=== PATIENT | female | born 2000 | race Caucasian/White ===

== ENCOUNTER 2025-02-04 10:11 | Emergency (ER) | payer OTHER, SELFPAY ==
--- OUTSIDE RECORDS SUMMARY | 2025-02-04 10:20 | XMS_ITS | Encounter Summary ---
Author Organization [facility] Address [address] [place] [address] Phone Care Team Providers Care See Supervisor Name Role Phone Teodoro Boyle MD Unavailable Robinson Horvath MD Primary Care Provider [phone] Reason for Visit * Reason Comments Medication Refill Encounter Details Date Type Department Care Team (Late st Contact Info) Description 07/08/2020 Refill [facility] [address] [place] [id number] Yunier Mendez APRN, FLY RAISER LOCKSTITCH [address] [address] Medication Refill Social History Tobacco Use Types Packs/Day Years Used Date Smoking Tobacco: Never Smokeless Tobacco: Never Comments:smoked only for 6 m onths, 3-4 a week Alcohol Use Standard Drinks/Week Comments Yes 0 (1 standard drink = 0.6 oz pur e alcohol) PHQ-2 Answer Date Recorded PHQ-2 Score 15 10/03/2019 Education Answer Date Recorded What is the highest level of school you have completed or the highest degree you have received? 12th grade 06/27/2020 Sexually Active Control Partners Comments Yes Male Comments No Sex and Gender Information Value Date Recorded Sex Assigned at Not on file Legal Sex Female 7:24 PM CDT Gender Identity Not on file Sexual Orientation Not on file Occupation Industry Job Start Date Job End Date [employer] Not on file Not on file Not on file COVID-19 Exposure Response Date Recorded In the last month, have you been in contact with someone who was confirmed or suspected to have Coronavirus / COVID-19? No / Unsure 07/09/2020 9:15 AM CDT documented as of this encounter Miscellaneous Notes * Telephone Encounter - Yunier Mendez APN, CNP - 07/10/2020 10:00 AM CDT PDMP reviewed. * Telephone Encounter - Pamella Smith RN - 07/09/2020 3:22 PM CDT Medication failed the protocol, provider to review and approve the medication order. Requested Prescriptions Pending Prescriptions Disp Refills LORazepam (ATIVAN) 0.5 MG Tablet [Pharmacy Med Name: LORAZEPAM 0.5MG TABLETS] 30 Tab 0 Sig: TAKE 1 TABLET BY MOUTH TWICE DAILY NEEDED FOR ANXIETY Not Delegated - Anesthesia: Anesthetics & Sedatives Failed - 07/09/2020 3:21 PM Failed - This refill cannot be delegated Passed - Valid encounter within last 6 months Past Office Visits Recent Outpatient Visits Yesterday Injection site reaction, subsequent encounter [facility] - Betty Pepe APN, CNP 1 week ago Injection site reaction, initial encounter [facility] - Yunier Vilchis APN, CNP 1 week ago Generalized abdominal pain [facility] - Yunier Vilchis APN, CNP 2 months ago [facility] Yunier Vilchis [facility]N, CNP 3 months ago Viral URI [facility] - Yunier Vilchis APN, CNP Upcoming Appointments Future Appointments Today [email or web address]; [facility] Ultrasound, [facility] In 1 week Keshawn Nicholas MD [facility], [facility] In 2 months Yunier Mendez APN, FLY RAISER LOCKSTITCH [facility] - Family Medicine [facility] In 5 months Keshawn Nicholas MD [facility] Oncology Services, [facility] REGIONAL GUIDE - Recent and Past Visits Recent Visits Date Type Provider Dept 07/08/20 Office Visit Betty Vaca APN, FLY RAISER LOCKSTITCH [facility] 07/02/20 Office Visit Yunier Mendez APN, ALBERTO [facility] 06/28/20 Office Visit Yunier Mendez APN, FLY RAISER LOCKSTITCH [facility] 05/07/20 Office Visit Yunier Mendez APN, FLY RAISER LOCKSTITCH [facility] 04/04/20 Office Visit Yunier Mendez APN, ALBERTO [facility] 04/01/20 Office Visit Yunier Mendez APN, FLY RAISER LOCKSTITCH [facility] 10/24/19 Office Visit [facility] 10/03/19 Office Visit Yunier Mendez APN, FLY RAISER LOCKSTITCH [facility] 09/11/19 Office Visit Yunier Mendez APN, FLY RAISER LOCKSTITCH [facility] 08/08/19 Office Visit Yunier Mendez APN, FLY RAISER LOCKSTITCH [facility] Showing recent visits within past 460 days with a meds authorizing provider and meeting all other requirements Future Appointments Date Type Provider Dept 10/01/20 Appointment Yunier Mendez APN, FLY RAISER LOCKSTITCH [facility] Showing future appointments within next 90 days with a meds authorizing provider and meeting all other requirements 2 months ago (05/07/2020) LORazepam (ATIVAN) 0.5 MG Tablet Take 1 Tab by mouth 2 times daily as needed for Anxiety. Dispense: 30 Tab? Refills: 0? Start: 05/07/2020? documented in this encounter Plan of Treatment Not on file documented as of this encounter Visit Diagnoses Diagnosis Chest pain in adult documented in this encounter Additional Health Concerns Infection Onset Date Last Indicated Resolved Time COVID - 19 10/15/2020 10/15/2020 10/19/2020 6:55 AM SMOKE AND FLAME SPECIALIST COVID - 19 05/06/2021 05/06/2021 05/07/2021 7:56 PM CDT COVID - 19 Confirmed 05/06/2021 05/06/2021 021 12:16 AM CDT COVID - 19 09/14/2022 09/17/2022 09/27/2022 12:1 7 AM SMOKE AND FLAME SPECIALIST Respiratory Rule-Out 09/14/2022 09/14/2022 023 4:15 PM SMOKE AND FLAME SPECIALIST COVID - 19 11/21/2022 11/21/2022 12/01/2022 12:1 6 AM CDT COVID - 19 Confirmed 11/21/2022 11/21/2022 023 12:16 AM CDT COVID - 19 09/13/2023 09/13/2023 09/23/2023 12:1 6 AM SMOKE AND FLAME SPECIALIST Assessment Noted Time PHQ-9 Depression Total Score: 15 020 4:00 PM SMOKE AND FLAME SPECIALIST documented as of this encounter Care Teams See Supervisor Relationship Specialty Start Date End Date Robinson Horvath MD #[address] [address] PCP - General Family Medicine 07/26/19 Teodoro Boyle MD Consulting Physician Obstetrics & Gynecology 04/05/19 documented as of this encounter
--- OUTSIDE RECORDS SUMMARY | 2025-02-04 10:20 | XMS_ITS | Continuity of Care Document ---
Author Organization [facility] Address [address] [place] [address] [place] [address] Phone Care Team Providers Care Spindle Frame Carver Name Role Phone Ricardo Brice OD Unavailable Unavailable Allergies, Adverse Reactions, Alerts Substance Reaction Status Criticality DYE Active No Information Medications Medication Instructions Dosage Effective Dates (start - stop) Status Comments 1.5/30 (28) 1.5 mg-30 mcg (21)/75 mg (7) tablet take 1 tablet by oral route every day 1.00 tablet - Active Procedures Procedure Date Visual Field Examination(s) SCODI, Posterior Segment Office/outpatient Visit, Est Eye Exam, New Patient Advance Directives Directive Yes / No Effective Date File Name No Information Encounters Encounter Description Practice Location Reason(s) For Visit Diagnoses Date Provider Providers Copied on Encounter Office/outpa tient Visit, Est [facility], [address] [place] [address] [address], [place], [place], [id number], tel:[phone] SEC Jasen OROURKE Professional 1 mo IOP check (chief complaint) Glaucoma suspect of both eyesMeibomian gland dysfnct right eye, upper and lower eyelidsMeibomia n gland dysfnct left eye, upper and lower eyelids 9 Babs Silva. [facility], [address] [place] [address], [place], [address], [place]. tel:[phone] Referring Provider: Ricardo Burnette, [address] [place] [address], [place], [address]. tel:[phone] [facility], [address], [place], [place], [id number], tel:[phone] HUAN OROURKE Professional WIE (chief complaint) Family history of glaucomaMyopia of both eyes 9 Babs CEE Ricardo. [address] [place] [address], [address] [place] [address], [place], [address], [place]. tel:[phone] Referring Provider: Ricardo Brice OD R, [address] [place] [address], [place], [address]. tel:[phone] Family History Family Member Type Diagnosis Age At Onset Problem (finding) Family history of glauc prince Payers Payer name Insurance type Covered green party ID Authorlennie doshi(s) Humanmalcolm [facility] [id number] Social History Type Description Quantity Date Captured Comments Alcohol Use Details No Caffeine Use Details Tobacco Use Status Current non-smoker 18 Smoking Status Never smoker Non-Smoking Tobacco Use Details : No Details Available : No Details Available Sex Female Chief Complaint And Reason For Visit From encounter dated '05/24/2019 08:00'. 1 mo IOP check (chief complaint). Description: The 19 year old female presents for evaluation of 1 mo IOP check with VF 24-2 in the right eye and left eye. Hx of Myopia OU and Cupping OU. FHx of Glaucoma. Pt reports she doesn't use any gtts, OU. Pt reports she has noticed VA changes, OU, x 1 mo, and she is scared to drive at night because of her VA. Pt reports she still has the moderate ache like pain in the am, OU, x 3-4 mos, and OU feels bruised if she rubs them. Pt reports she has gooey like fluid come out of OU at night after she gets out of the shower, x 3-4 mo. Reason For Referral Reason For Referral No Information History Of Present Illness Encounter Date Complaint History Of Prese nt Illness 1 mo IOP check The 19 year old female presents for evaluation of 1 mo IOP check with VF 24-2 in the right eye and left eye. Hx of Myopia OU and Cupping OU. FHx of Glaucoma. Pt reports she doesn't use any gtts, OU. Pt reports she has noticed VA changes, OU, x 1 mo, and she is scared to drive at night because of her VA. Pt reports she still has the moderate ache like pain in the am, OU, x 3-4 mos, and OU feels bruised if she rubs them. Pt reports she has gooey like fluid come out of OU at night after she gets out of the shower, x 3-4 mo. WIE The 18 year old female presents for evaluation of WIE in the right eye and left eye. Patient states over the weekend her eyes were sore, swollen and sore to the touch. Patient states her vision seems more blurry. Patient states she was told that she has high blood pressure in her eyes. Functional Status Date Functional Assessmen t No Information Instructions Date Instruction Additional Infor avelino Impression/Plan Impression/Plan Assessments Type Assessment Date assessment Glaucoma suspect of both eyes Se assessment Meibomian gland dysfnct right ey e, upper and lower eyelids assessment Meibomian gland dysfnct left eye , upper and lower eyelids Patient Care Teams Name Effective Dates (start - stop) Status Members No Information
--- OUTSIDE RECORDS SUMMARY | 2025-02-04 10:20 | XMS_ITS | Clinical Summary ---
Author Organization [facility] Address [address] [place] [address] Phone Care Team Providers Care Senior Staff Accountant Name Role Phone Teodoro Boyle MD Unavailable Robinson Horvath MD Primary Care Provider [phone] Allergies Active Allergy Reactions Criticality Noted Date Comments Codeine Hives,Itching 09/11/2019 Iodinated Contrast Media Hives,Itching High 11/10/19 16 Medications albuterol (ProAir HFA) 108 (90 Base) MCG/ACT Aerosol SolutionIndicat ions:COVID-19,D yspnea on exertion take 2 Puffs by inhalation every 4 hours as needed for Wheezing or Cough. 18 g 3 Active Additional Information Patient not taking.Reported on 10/31/2023 fluticasone (FLONASE) 50 MCG/ACT Suspension SPRAY 2 SPRAYS INTO EACH NOSTRIL DAILY -AFTER 1 WEEK MAY USE 1-2 SPRAY INTO EACH NOSTRIL DAILY 4 Active Active Problems Problem Noted Date Diagnosed Date Skin lesion of left arm 11/12/2020 Chest wall pain 10/27/2020 Epigastric pain 07/07/2020 Dysuria 07/07/2020 Thrombocytosis 05/27/2020 S/P laparoscopic cholecystectomy 11/22/2019 Biliary dyskinesia 11/07/2019 DDD (degenerative disc disease), lumbar 09/15/19 Vitamin D deficiency 07/30/2019 B12 deficiency 07/30/2019 Fatigue 07/26/2019 Tachycardia 07/26/2019 Irritable bowel syndrome 07/26/2019 Mild intermittent asthma without complication Gastroesophageal reflux disease 07/26/2019 Anxiety 07/26/2019 Kidney stone 07/26/2019 Anal skin tag 06/23/2019 Midline low back pain 05/30/2019 Acne vulgaris 06/01/2016 Resolved Problems Problem Noted Date Diagnosed Date Resolved Date Thrombocytosis 05/08/2020 10/04/2020 Nausea vomiting and diarrhea 11/07/2019 06/01/2020 Biliary dyskinesia 11/07/2019 0 Nausea vomiting and diarrhea 11/07/2019 06/01/2020 Overweight (BMI 25.0-29.9) 07/26/2019 1 Anal fissure 12/13/2018 04/05/2019 Plantar wart of both feet 07/24/2015 Immunizations Immunization Administration Dates Next Due DTAP VACCINE 01/08/2005, 0,1999,09/18,1999 HEP B/HIB Combined Vaccine 08/30/2000,1999 ,1999 Hepatitis A Vaccine, Pediatric/adolescent, 2 Dose Schedule 07/19/2014 Hpv, Unspecified Formulation 07/19/2014,04/24/20 14 Inactivated Polio Vaccine 01/08/2005,,1999,07/24 Influenza Vaccine, Quadrivalent, PF 06/13/2020,0 05/30/2019 MMR Vaccine 01/08/2005,05/27/2000 Meningococcal MCV4O 03/31/2011 Pneumococcal Vaccine Peds - 7 Valent 08/30/2000, 05/27/2000 TDAP Vaccine 03/31/2011 Varicella Vaccine Live 03/31/2011,05/27/2000 Family History Medical History Relation Name Comments No Known Problems Brother Congestive Heart Failure Father Heart Disease Father Hypertension Father Melanoma Mother Kidney Cancer Paternal Grandfather Lung Cancer Paternal Grandfather Leukemia/Lymphoma Paternal Grandmother Relation Name Status Comments Brother Alive Father Alive Maternal Grandfather Maternal Grandmother Alive Mother Alive Paternal Grandfather Paternal Grandmother Alive Social History Tobacco Use Types Packs/Day Years Used Date Smoking Tobacco: Former Cigarettes Smokeless Tobacco: Never Tobacco Cessation:Counseling Given: No Comments:Smoked cigarettes for only 6 months, 3-4 cigarettes a week Alcohol Use Standard Drinks/Week Comments Yes 0 (1 standard drink = 0.6 oz pur e alcohol) Occasionally PHQ-2 Answer Date Recorded Total Score - Questions 1-9 0 09/14 Education Answer Date Recorded What is the highest level of school you have completed or the highest degree you have received? Some college, no degree 10/04/2020 Sexually Active Control Partners Comments Yes Male Comments No Sex and Gender Information Value Date Recorded Sex Assigned at Not on file Legal Sex Female 7:24 PM CDT Gender Identity Not on file Sexual Orientation Not on file Occupation Industry Job Start Date Job End Date [employer] Not on file Not on file Not on file Last Filed Vital Signs Vital Sign Reading Time Taken Comments Blood Pressure 140/65 10/31/2023 8:29 PM EXCHANGE ADMINISTRATOR Pulse 98 10/31/2023 8:29 PM EXCHANGE ADMINISTRATOR Temperature 36 C (96.8 F) 10/31/2023 8:29 PM EXCHANGE ADMINISTRATOR Respiratory Rate 17 10/31/2023 8:29 PM EXCHANGE ADMINISTRATOR Oxygen Saturation 98% 10/31/2023 8:29 PM EXCHANGE ADMINISTRATOR Inhaled Oxygen Concentration - - Weight 83 kg (183 lb) 10/31/2023 8:29 PM EXCHANGE ADMINISTRATOR Height 165.1 cm (5' 5 ) 10/31/2023 8:29 PM EXCHANGE ADMINISTRATOR Body Mass Index 30.45 10/31/2023 8:29 PM EXCHANGE ADMINISTRATOR Plan of Treatment Health Maintenance Due Date Last Done Comments Hepatitis C Virus (HCV) Screening 1999 Human Papillomavirus (HPV) Immunization (3 - 2-dose series) 10/25/2014 07/19/2014, 04/24/2014 Pneumococcal Immunization Combined (1 of 2 - PCV) 2018 08/30/2000, 05/27/2000 Pap Smear 2020 SARS-COV-2 Immunization ( - season) 2024 Influenza Immunization (Season Ended) 2025 06/13/2020, 05/30/2019 DTaP/Tdap/Td Immunization (8 - Td or Tdap) 02/17/2033 02/17/2023, 03/31/2011, 01/08/2005, Additional history exists Td Immunization Every 10 Years (Adults With 1 Tdap) 02/17/2033 02/17/2023, 03/31/2011 Respiratory Syncytial Virus (RSV) Immunization (Adult) (1 - 1-dose 75+ series) 2074 Hepatitis B Immunization Completed 000, 1999, 1999 Meningococcal Immunization (ACWY) Aged Out 03/31/2011 No longer eligible based on patient's age to complete this topic Rotavirus Immunization Aged Out No lo nger eligible based on patient's age to complete this topic Insurance MEDICAID [place] [facility] Advance Directives * Full Code (Latest Code Status on File) Date Activated Date Inactivated Comments 11/07/2019 1:25 PM 11/09/2019 4:04 PM CPR-Full Chandrakant atment: FULL ARREST: Attempt Resuscitation/CPR wit intubation and mechanical ventilation. PRE-ARREST: Use entire range of life support measures to stabilize the patient. Care Teams Senior Staff Accountant Relationship Specialty Start Date End Date Robinson Horvath MD #[address] [address] PCP - General Family Medicine 07/26/19 Teodoro Boyle MD Consulting Physician Obstetrics & Gynecology 04/05/19
--- OUTSIDE RECORDS SUMMARY | 2025-02-04 10:20 | XMS_ITS | Encounter Summary ---
Author Organization [facility] Address [address] [place] [address] Phone Care Team Providers Care Manager Internal Name Role Phone Teodoro Boyle MD Unavailable Robinson Horvath MD Primary Care Provider [phone] Reason for Visit * Reason Comments Medication Refill Encounter Details Date Type Department Care Team (Late st Contact Info) Description 07/03/2021 Refill [facility] - Family Medicine [facility] [address] [place] [address] Yunier Mendez APRN, CAPTAIN/CHECK AIRMAN [address] [address] Medication Refill Social History Tobacco Use Types Packs/Day Years Used Date Smoking Tobacco: Never Smokeless Tobacco: Never Comments:smoked only for 6 m onths, 3-4 a week Alcohol Use Standard Drinks/Week Comments Yes 0 (1 standard drink = 0.6 oz pur e alcohol) PHQ-2 Answer Date Recorded Total Score - [...] file Not on file Not on file documented as of this encounter Miscellaneous Notes * Telephone Encounter - Julieta Michael RN - 07/03/2021 4:06 PM CDT Medication failed the protocol, provider to review and approve the medication order if appropriate. Requested Prescriptions Pending Prescriptions Disp Refills LORazepam (ATIVAN) 0.5 MG Tablet [Pharmacy Med Name: LORAZEPAM 0.5MG TABLETS] 30 Tablet Sig: Take 1 Tablet by mouth every 8 hours as needed for Anxiety. [email or web address] Not Delegated - Anesthesia: Anesthetics & Sedatives Failed - 07/03/2021 4:06 PM Failed - This refill cannot be delegated Passed - Valid encounter within last 6 months Past Office Visits Recent Outpatient Visits 1 month ago COVID-19 [facility] - Yunier Vilchis APN, ALBERTO 1 month ago [facility] - Yunier Vilchis APN, CAPTAIN/CHECK AIRMAN 8 months ago [facility]ch[facility] APN, CAPTAIN/CHECK AIRMAN 9 months ago Constipation, unspecified constipation type [facility] Vilchis APN, CAPTAIN/CHECK AIRMAN 9 months ago Pharyngitis, unspecified etiology [facility] Yunier Vilchis APN, CAPTAIN/CHECK AIRMAN Upcoming Appointments TUGBOAT CAPTAIN - Recent and Past Visits Recent Visits Date Type Provider Dept 05/13/21 Telemedicine Yunier Mendez APN, ALBERTO [facility] 05/06/21 Telemedicine Yunier Mendez APN, ALBERTO [facility] 10/15/20 Telemedicine Yunier Mendez APN, ALBERTO [facility] 10/04/20 Office Visit Yunier Mendez APN, ALBERTO [facility] 09/19/20 Office Visit Yunier Mendez APN, CAPTAIN/CHECK AIRMAN [facility] 07/08/20 Office Visit Betty Vaca APN, CAPTAIN/CHECK AIRMAN [facility] 07/02/20 Office Visit Yunier Mendez APN, CAPTAIN/CHECK AIRMAN [facility] 06/28/20 Office Visit Yunier Mendez APN, CAPTAIN/CHECK AIRMAN [facility] 05/07/20 Office Visit Yunier Mendez APN, CAPTAIN/CHECK AIRMAN [facility] 04/04/20 Office Visit Yunier Mendez APN, CAPTAIN/CHECK AIRMAN [facility] Showing recent visits within past 460 days with a meds authorizing provider and meeting all other requirements Future Appointments No visits were found meeting these conditions. Showing future appointments within next 90 days with a meds authorizing provider and meeting all other requirements * Telephone Encounter - Julieta Michael RN - 07/03/2021 4:05 PM CDT [place] last dispensed 05/06/2021, 10 day supply. documented in this encounter Plan of Treatment Not on file documented as of this encounter Visit Diagnoses Diagnosis Anxiety Anxiety state, unspecified documented in this encounter Additional Health Concerns Infection Onset Date Last Indicated Resolved Time COVID - 19 09/14/2022 09/17/2022 09/27/2022 12:1 7 AM WEAVING INSTRUCTOR Respiratory Rule-Out 09/14/2022 09/14/2022 023 4:15 PM WEAVING INSTRUCTOR COVID - 19 11/21/2022 11/21/2022 12/01/2022 12:1 6 AM CDT COVID - 19 Confirmed 11/21/2022 11/21/2022 023 12:16 AM CDT COVID - 19 09/13/2023 09/13/2023 09/23/2023 12:1 6 AM WEAVING INSTRUCTOR Assessment Noted Time PHQ-9 Depression Total Score: 0 10/04/19 11:11 AM WEAVING INSTRUCTOR documented as of this encounter Care Teams Manager Internal Relationship Specialty Start Date End Date Robinson Horvath MD [address] [place] [address] PCP - General Family Medicine 07/26/19 Teodoro Boyle MD Consulting Physician Obstetrics & Gynecology 04/05/19 documented as of this encounter
--- OUTSIDE RECORDS SUMMARY | 2025-02-04 10:21 | XMS_ITS | Encounter Summary ---
Author Organization [facility] Address [address] [facility] [place] [address] Phone Care Team Providers Care Supervisor Car Installations Name Role Phone Teodoro Boyle MD Unavailable Robinson Horvath MD Primary Care Provider [phone] Reason for Visit * Reason Comments Medication Refill Encounter Details Date Type Department Care Team (Late st Contact Info) Description 12/12/2020 Refill [facility] [place] [address] Lianne Carmen MD [address] [facility] [address] [place] [address] Medication Refill Social History Tobacco Use Types [...] have Coronavirus / COVID-19? No / Unsure 11/12/2020 11:00 AM CUSTOMER SUPPORT MANAGER documented as of this encounter Miscellaneous Notes * Telephone Encounter - Mayte Pacheco - 12/12/2020 1:20 PM CDT Please provide refill for patient. Medication routed to patient's PCP. Requested Prescriptions Pending Prescriptions Disp Refills fluconazole (DIFLUCAN) 150 MG Tablet [Pharmacy Med Name: FLUCONAZOLE 150MG TABLETS] 1 Tablet 0 Sig: TAKE 1 TABLET BY MOUTH 1 TIME FOR 1 DOSE documented in this encounter Plan of Treatment Not on file documented as of this encounter Visit Diagnoses Not on filedocumented in this encounter Additional Health Concerns Infection Onset Date Last Indicated Resolved Time COVID - 19 05/06/2021 05/06/2021 05/07/2021 7:56 PM CDT COVID - 19 Confirmed 05/06/2021 05/06/2021 021 12:16 AM CDT COVID - 19 09/14/2022 09/17/2022 09/27/2022 12:1 7 AM CUSTOMER SUPPORT MANAGER Respiratory Rule-Out 09/14/2022 09/14/2022 023 4:15 PM CUSTOMER SUPPORT MANAGER COVID - 19 11/21/2022 11/21/2022 12/01/2022 12:1 6 AM CDT COVID - 19 Confirmed 11/21/2022 11/21/2022 023 12:16 AM CDT COVID - 19 09/13/2023 09/13/2023 09/23/2023 12:1 6 AM CUSTOMER SUPPORT MANAGER Assessment Noted Time PHQ-9 Depression Total Score: 0 10/04/19 21 11:11 AM CUSTOMER SUPPORT MANAGER documented as of this encounter Care Teams Supervisor Car Installations Relationship Specialty Start Date End Date Robinson Horvath MD #[address] [address] PCP - General Family Medicine 07/26/19 Teodoro Boyle MD Consulting Physician Obstetrics & Gynecology 04/05/19 documented as of this encounter
--- OUTSIDE RECORDS SUMMARY | 2025-02-04 10:21 | XMS_ITS | Referral Summary ---
Author Organization [facility] Medical Office Building B Address [address] [place] [address] Care Team Providers Care Material Reclaimer Name Role Phone Robinson Horvath MD Primary Care Provider [phone] Allergies Active Allergy Reactions Criticality Noted Date Comments Iodinated Contrast Media Medications albuterol HFA (PROVENTIL HFA,VENTOLIN HFA,PROAIR HFA) 90 mcg/actuation inhaler INHALE 2 PUFFS BY MOUTH EVERY 4 HOURS NEEDED FOR WHEEZING 10/22/2020 Active amoxicillin (AMOXIL) 250 mg capsule TAKE ONE CAPSULE BY MOUTH EVERY 8 HOURS UNTIL ALL TAKEN 12/27/2020 Active atenoloL (TENORMIN) 25 mg tablet Take 12.5 mg by mouth daily 10/22/2020 Active clindamycin-jorge zoyl peroxide (BENZACLIN) gel Apply to face area daily. 30 days supply. 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 Progressive bowel therapy also discussed with patient, miralax, metamucil, stool softeners, increased water intake, activity, and precautions with dizziness from topical. All questions were answered. Social History Tobacco Use Types Packs/Day Years Used Date Smoking Tobacco: Never Smokeless Tobacco: Never Alcohol Use Standard Drinks/Week Comments No 0 (1 standard drink = 0.6 oz pur e alcohol) Comments No Sex and Gender Information Value Date Recorded Sex Assigned at Not on file Legal Sex Female 9:35 AM GRIEVANCE AND APPEALS COORDINATOR Gender Identity Female 12/24/2020 9:00 AM CDT Sexual Orientation Straight 12/24/2020 9: 00 AM CDT Last Filed Vital Signs Vital Sign Reading Time Taken Comments Blood Pressure 109/75 12/30/2020 2:01 PM CDT Pulse 85 12/30/2020 2:01 PM CDT Temperature 37 C (98.6 F) 12/30/2020 2:01 PM CDT Respiratory Rate 23 04/15/2018 4:45 PM CDT Oxygen Saturation 97% 04/15/2018 4:45 PM CDT Inhaled Oxygen Concentration - - Weight 86.2 kg (190 lb) 12/30/2020 2:01 PM CDT Height 167.6 cm (5' 6 ) 12/30/2020 2:01 PM CDT Body Mass Index 30.67 12/30/2020 2:01 PM CDT Plan of Treatment Not on file Insurance [facility] MEDICAID [employer] CHOICE MEDICARE PPO [facility] MEDICAID Care Teams Material Reclaimer Relationship Specialty Start Date End Date Robinson Horvath MD [address] [facility] [address] [address] PCP - General Family Medicine 12/30/20
--- OUTSIDE RECORDS SUMMARY | 2025-02-04 10:21 | XMS_ITS | Encounter Summary ---
Author Organization [facility] Address [address] [place] [address] Phone Care Team Providers Care Texturing Machine Fixer Name Role Phone Teodoro Boyle MD Unavailable [phone] Robinson Horvath MD Primary Care Provider [phone] Reason for Visit * Reason Comments Medication Refill Encounter Details Date Type Department Care Team (Late st Contact Info) Description 04/15/2020 Refill [facility] [address] [place] [id number] Robinson Horvath MD [address] [address] Medication Refill Social History Tobacco Use Types Packs/Day Years Used Date Smoking Tobacco: Never Smokeless Tobacco: Never Comments:smoked only for 6 m onths, 3-4 a week Alcohol Use Standard Drinks/Week Comments No 0 (1 standard drink = 0.6 oz pur e alcohol) PHQ-2 Answer Date Recorded PHQ-2 Score 15 10/03/2019 Sexually Active Control Partners Comments Yes Male [...] have Coronavirus / COVID-19? No / Unsure 04/04/2020 7:44 AM CDT documented as of this encounter Miscellaneous Notes * Telephone Encounter - Wen Montgomery RN - 04/18/2020 9:07 AM CDT Medication failed the protocol, provider to review and approve the medication order. Requested Prescriptions Pending Prescriptions Disp Refills ALBUTEROL 108 (90 Base) MCG/ACT Aerosol Solution [Pharmacy Med Name: ALBUTEROL HFA INH (200 PUFFS) 8.5GM] 8.5 g 0 Sig: INHALE TWO PUFFS BY MOUTH EVERY 4 HOURS NEEDED FOR WHEEZING Pulmonology: Beta Agonists - Albuterol & Levalbuterol Failed - 04/15/2020 9:17 AM Failed - May refill 2 inhalers, 0 refills one time since last office visit. May refill #50 nebulizer vials, 0 refills for albuterol or #48 vials, 0 refills for Xopenex one time since last office visit. Passed - Valid encounter within last 6 months Past Office Visits Recent Outpatient Visits 2 weeks ago Viral URI [facility] Yunier Mendez APN, CNP 2 weeks ago Sore throat [facility] Yunier Mendez APN, CNP 5 months ago Irritable bowel syndrome with both constipation and diarrhea [facility] Robinson Horvath MD 6 months ago Anxiety and depression [facility] Yunier Mendez APN, CNP 7 months ago Acute URI [facility] Yunier Mendez APN, CNP Upcoming Appointments MACHINE REPAIRMAN - Recent and Past Visits Recent Visits Date Type Provider Dept 04/04/20 Office Visit Yunier Mendez APN[place] [facility] [place] 04/01/20 Office Visit Yunier Mendez APN, CNP [facility] 10/24/19 Office Visit Robinson Horvath MD [facility] 10/03/19 Office Visit Yunier Mendez APN, [facility]O [facility] 09/11/19 Office Visit Yunier Mendez APN, ALBERTO [facility] 08/08/19 Office Visit Yunier Mendez APN, ALBERTO [facility] 08/02/19 Office Visit Robinson Horvath MD [facility] 07/26/19 Office Visit Robinson Horvath, MD [facility] 05/31/19 Office Visit Yunier Conner MD [facility] 04/05/19 Office Visit Yunier Conner MD [facility] Showing recent visits within past 460 days with a meds authorizing provider and meeting all other requirements Future Appointments No visits were found meeting these conditions. Showing future appointments within next 90 days with a meds authorizing provider and meeting all other requirements Passed - Last BP in normal range BP Readings from Last 1 Encounters: 04/04/20 138/84 documented in this encounter Plan of Treatment Not on file documented as of this encounter Visit Diagnoses Not on filedocumented in this encounter Additional Health Concerns Infection Onset Date Last Indicated Resolved Time COVID - 19 05/21/2020 05/21/2020 05/27/2020 7:36 AM CDT COVID - 19 10/15/2020 10/15/2020 10/19/2020 6:55 AM CERTIFIED PATHOLOGY ASSISTANT COVID - 19 05/06/2021 05/06/2021 05/07/2021 7:56 PM CDT COVID - 19 Confirmed 05/06/2021 05/06/2021 021 12:16 AM CDT COVID - 19 09/14/2022 09/17/2022 09/27/2022 12:1 7 AM CERTIFIED PATHOLOGY ASSISTANT Respiratory Rule-Out 09/14/2022 09/14/2022 023 4:15 PM CERTIFIED PATHOLOGY ASSISTANT COVID - 19 11/21/2022 11/21/202212/01/2022 12:1 6 AM CDT COVID - 19 Confirmed 11/21/2022 11/21/2022 023 12:16 AM CDT COVID - 19 09/13/2023 09/13/2023 09/23/2023 12:1 6 AM CERTIFIED PATHOLOGY ASSISTANT Assessment Noted Time PHQ-9 Depression Total Score: 15 020 4:00 PM CERTIFIED PATHOLOGY ASSISTANT documented as of this encounter Care Teams Texturing Machine Fixer Relationship Specialty Start Date End Date Robinson Horvtah MD [address] [address] PCP - General Family Medicine 07/26/19 Teodoro Boyle MD Consulting Physician Obstetrics & Gynecology 04/05/19 documented as of this encounter
--- OUTSIDE RECORDS SUMMARY | 2025-02-04 10:21 | XMS_ITS | Clinical Summary ---
Author Organization [facility] Medical [facility] Building B Address [address] [place] [address] Care Team Providers Care Fine Hairer Name Role Phone Robinson Horvath MD Primary Care Provider [phone] Allergies Active Allergy Reactions Criticality Noted Date [...] dizziness from topical. All questions were answered. 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) Family History Medical History Relation Name Comments Hypertension Father Relation Name Status Comments Father Social History Tobacco Use Types Packs/Day Years Used Date Smoking Tobacco: Never Smokeless Tobacco: Never Alcohol Use Standard Drinks/Week Comments No 0 (1 standard drink = 0.6 oz pur e alcohol) Comments No Sex and Gender Information Value Date Recorded Sex Assigned at Not on file Legal Sex Female 9:35 AM INDUCTION COORDINATION ENGINEER Gender Identity Female 12/24/2020 9:00 AM CDT Sexual Orientation Straight 12/24/2020 9: 00 AM CDT Obstetrics History Last Filed Vital Signs Vital Sign Reading [...] 12/30/2020 2:01 PM CDT Plan of Treatment Health Maintenance Due Date Last Done Comments Cervical Cancer Screening 1999 Depression Screening 1999 Hepatitis C Screening 1999 Pneumococcal vaccine <65 (1 of 1 - PPSV23) 2005 08/30/2000, 05/27/2000 HPV Vaccines (3 - 2-dose series) 10/25/2014 07/19/20 14, 04/24/2014 Regular Well Visit/Exam 18-64 2017 DTaP/Tdap/Td Vaccine (7 - Td or Tdap) 03/31/2021 03/31/2011, 01/08/2005, 08/30/2000, Additional history exists Influenza Vaccine (Season Ended) 2025 06/13/20 20, 05/30/2019 Hepatitis B Screening Completed 08/30/2000 , 1999, 1999 Varicella Vaccines Completed 03/31/2011, 05/27/2000 Insurance [facility] MEDICAID HUMAN CHOICE MEDICARE O [facility] MEDICAID Care Teams Fine Hairer Relationship Specialty Start Date End Date Robinson Horvath MD 2 [facility] [address] [address] PCP - General Family Medicine 12/30/20
--- OUTSIDE RECORDS SUMMARY | 2025-02-04 10:21 | XMS_ITS | Encounter Summary ---
Author Organization [facility] Address [address] [place] [address] Phone Care Team Providers Care Crm Solution Architect Name Role Phone Teodoro Boyle MD Unavailable [phone] Robinson Horvath MD Primary Care Provider [phone] Reason for Visit * Reason Comments Medication Refill Encounter Details Date Type Department Care Team (Late st Contact Info) Description 08/26/2020 Refill [facility] [address] [place] [address] Robinson Horvath MD [address] [address] Medication Refill Social History Tobacco Use Types [...] have Coronavirus / COVID-19? No / Unsure 08/28/2020 4:38 PM WEB CONTENT & SOCIAL MEDIA MANAGER documented as of this encounter Miscellaneous Notes * Telephone Encounter - Nita Hill RN - 08/26/2020 2:23 PM CST Medication failed the protocol, provider to review and approve the medication order if appropriate. Requested Prescriptions Pending Prescriptions Disp Refills albuterol 108 (90 Base) MCG/ACT Aerosol Solution [Pharmacy Med Name: ALBUTEROL HFA INH (200 PUFFS)8.5GM] 8.5 g 0 Sig: INHALE 2 PUFFS BY MOUTH EVERY 4 HOURS NEEDED FOR WHEEZING Pulmonology: Beta Agonists - Albuterol & Levalbuterol Failed - 08/26/2020 9:40 AM Failed - May refill 2 inhalers, 0 refills one time since last office visit. May refill #50 nebulizer vials, 0 refills for albuterol or #48 vials, 0 refills for Xopenex one time since last office visit. Passed - Valid encounter within last 6 months Past Office Visits Recent Outpatient Visits 1 month ago Injection site reaction, [facility] APN, AUTHOR'S AGENT 1 month ago Injection site reaction, initial [facility] Yunier iVlchis APN, AUTHOR'S AGENT 1 month ago Generalized abdominal pain [facility] Yunier Vilchis APN, AUTHOR'S AGENT 3 months ago Chest pain in adult [facility] Yunier Vilchis APN, AUTHOR'S AGENT 4 months ago Viral URI [facility] - Yunier Vilchis APN, AUTHOR'S AGENT Upcoming Appointments Future Appointments Today Keshawn Nicholas MD [facility], [facility] In 1 month Yunier Mendez APN, ALBERTO [facility] - Family [facility] In 3 months Keshawn Nicholas MD [facility], [facility] PULVERIZER MILL OPERATOR - Recent and Past Visits Recent Visits Date Type Provider Dept 07/08/20 Office Visit Betty Vaca APN, AUTHOR'S AGENT [facility] 07/02/20 Office Visit Yunier Mendez APN, AUTHOR'S AGENT [facility] 06/28/20 Office Visit Yunier Mendez APN, ALBERTO [facility] 05/07/20 Office Visit Yunier Mendez APN, ALBERTO [facility] 04/04/20 Office Visit Yunier Mendez APN, ALBERTO [facility] 04/01/20 Office Visit Yunier Mendez APN, AUTHOR'S AGENT [facility] 10/24/19 [facility] Visit Yunier Mendez APN, AUTHOR'S AGENT [facility] 09/11/19 Office Visit Yunier Mendez APN, AUTHOR'S AGENT [facility] 08/08/19 Office Visit Yunier Mendez APN, AUTHOR'S AGENT [facility] Showing recent visits within past 460 days with a meds authorizing provider and meeting all other requirements Future Appointments Date Type Provider Dept 10/01/20 Appointment Yunier Mendez APN, AUTHOR'S AGENT [facility] Showing future appointments within next 90 days with a meds authorizing provider and meeting all other requirements Passed - Last BP in normal range BP Readings from Last 1 Encounters: 08/16/20 124/67 CONTENT & SOCIAL MEDIA MANAGER documented in this encounter Plan of Treatment Not on file documented as of this encounter Visit Diagnoses Not on filedocumented in this encounter Additional Health Concerns Infection Onset Date Last Indicated Resolved Time COVID - 19 10/15/2020 10/15/2020 10/19/2020 6:55 AM WEB CONTENT & SOCIAL MEDIA MANAGER COVID - 19 05/06/2021 05/06/2021 05/07/2021 7:56 PM CDT COVID - 19 Confirmed 05/06/2021 05/06/2021 021 12:16 AM CDT COVID - 19 09/14/2022 09/17/2022 09/27/2022 12:1 7 AM WEB CONTENT & SOCIAL MEDIA MANAGER Respiratory Rule-Out 09/14/2022 09/14/2022 023 4:15 PM WEB CONTENT & SOCIAL MEDIA MANAGER COVID - 19 11/21/2022 11/21/2022 12/01/2022 12:1 6 AM CDT COVID - 19 Confirmed 11/21/2022 11/21/2022 023 12:16 AM CDT COVID - 19 09/13/2023 09/13/2023 09/23/2023 12:1 6 AM WEB CONTENT & SOCIAL MEDIA MANAGER Assessment Noted Time PHQ-9 Depression Total Score: 15 020 4:00 PM WEB CONTENT & SOCIAL MEDIA MANAGER documented as of this encounter Care Teams Crm Solution Architect Relationship Specialty Start Date End Date Robinson Horvath MD [address] [address] PCP - General Family Medicine 07/26/19 Teodoro Boyle MD Consulting Physician Obstetrics & Gynecology 04/05/19 documented as of this encounter
--- OUTSIDE RECORDS SUMMARY | 2025-02-04 10:21 | XMS_ITS | Encounter Summary ---
Author Organization [facility] Address [address] [place] [address] Phone Care Team Providers Care Water System Operator Name Role Phone Teodoro Boyle MD Unavailable Robinson Horvath MD Primary Care Provider [phone] Reason for Visit * Reason Comments Medication Refill Encounter Details Date Type Department Care Team (Late st Contact Info) Description 02/26/2021 Refill [facility] [address] [place] [id number] Yunier Mendez APRN, APPRAISER IRRIGATION TAX [address] [address] Medication Refill Social History Tobacco Use Types [...] Telephone Encounter - Nita Hill RN - 02/26/2021 3:35 PM CDT Monica Hoang RN ?? 02/26/21 2:20 PM Note Called and spoke with pharmacist at [facility] regarding giving a verbal order for medication refill for Rectiv 0.4% same instructions, same quantity and 1 time order no refills. documented in this encounter Plan of Treatment Not on file documented as of this encounter Visit Diagnoses Not on filedocumented in this encounter Additional Health Concerns Infection Onset Date Last Indicated Resolved Time COVID - 19 05/06/2021 05/06/2021 05/07/2021 7:56 PM CDT COVID - 19 Confirmed 05/06/2021 05/06/2021 021 12:16 AM CDT COVID - 19 09/14/2022 09/17/2022 09/27/2022 12:1 7 AM PLANT OPERATOR/SHIFT SUPERVISOR Respiratory Rule-Out 09/14/2022 09/14/2022 023 4:15 PM PLANT OPERATOR/SHIFT SUPERVISOR COVID - 19 11/21/2022 11/21/2022 12/01/2022 12:1 6 AM CDT COVID - 19 Confirmed 11/21/2022 11/21/2022 023 12:16 AM CDT COVID - 19 09/13/2023 09/13/2023 09/23/2023 12:1 6 AM PLANT OPERATOR/SHIFT SUPERVISOR Assessment Noted Time PHQ-9 Depression Total Score: 0 10/04/19 11:11 AM PLANT OPERATOR/SHIFT SUPERVISOR documented as of this encounter Care Teams Water System Operator Relationship Specialty Start Date End Date Robinson Horvath MD #[address] [address] PCP - General Family Medicine 07/26/19 Teodoro Boyle MD Consulting Physician Obstetrics & Gynecology 04/05/19 documented as of this encounter
--- OUTSIDE RECORDS SUMMARY | 2025-02-04 10:21 | XMS_ITS | Data Portability ---
Author Organization [facility] Address [address] [place] [address] Assessment Encounter Date Assessment Date Assessment LastModified by Organization Details LastModified Time 03/12/2015 03/12/2015 14 y.o. OCPs for period regulation, acne, PMS Not available 03/12/2015 14:59:28 12/21/2017 12/21/2017 Didnt like generic for Gildess - wrote her an RX for it... still made? She and boyfriend having HSV discussion, would like a blood test , no symptoms Not available 12/21/2017 15:52:14 11/28/2018 11/28/2018 Less harshad one month of rlq pain and pain with intercourse. examis benign today. On OCPs. discussed osis, cysts, stds will check std panel, if (-) will consider US after next period if still present Not available 11/28/2018 17:45:24 08/25/2019 08/25/2019 Lenghy discussion today about 3 months of Low back pain that she describes as constant. On OCPs, small periods, pain not associated with them. No midcycle ovulatory issues (OCPs.) No BM pain. Has small kidney stone that is non-obstructi ng, urology says isnt the source. CT scan normal, no evidence of abd/pelivic pathology. Description of pain n low back and sometimes down legs may melissa spine MD / neurologist. Not available 08/25/2019 15:02:37 Plan of Treatment Reminders Order Date Submit Date Provider Last Modified By Organization Details Last Modified Time Details Appointments None recorded. Lab CT + NG RNA, PCR, unspecified specimen 2018 019 [place] [facility], [address], [address], [place], [address], 9 07:19:20 hsv (1+2) igg, serum 2017 018 [email or web address] [facility], [address], [address], [place], [address], 8 09:57:58 Referral None recorded. Procedures None recorded. Surgeries None recorded. Imaging None recorded. Medication Orders omeprazole 40 mg capsule,del ayed release 2023 024 [facility] #[id number], [address] [place], [address], 4 14:38:58 Patient TargetsNo targets recorded. Patient Instructions Encounter Date Encounter Id Patient Instructions Last Modified By Organization Details Last Modified Time 03/12/2015 [id number] learning about control: combination pills [email or web address] Not available 03/12/2015 15:01:35 11/28/2018 [id number] possible appendicitis: care instructions Not available 11/28/2018 17:45:25 08/25/2019 [id number] back care and preventing injuries: care instructions Not available 08/25/2019 15:02:37 Reason for Referral None Reported. Results Created Date Observation Date Name Description Value Unit Range Abnormal Flag Note LastModifiedBy Organization Detail LastModifiedTime 11/30/19 19 11/30/2018 CT + NG RNA, PCR, unspe cifie d speci men chlamydia trachomatis, LAKISHA Negati ve negati ve Not Available [facility] ([facility]) [address] [place], [address], 12/01/2018 07:19:20 11/30/19 19 11/30/2018 CT + NG RNA, PCR, unspe cifie d speci men neisseria gonorrhoeae, LAKISHA Negati ve negati ve Not Available [facility] ([facility]) [address] [place], [address], 12/01/2018 07:19:20 08/25/20 19 08/22/2019 CT, abdom en + pelvi s, w/o contr ast No observ ation record ed. [facility] Lab [address] [place], [address], 08/25/2019 15:10:28 Result Notes None recorded. Problems Name Problem SNOMED Code Status Onset Date Resolution Date Notes Provider Name and Address Organization Details Recorded Time Urinary bladder problem 988073857 Active MINA Cordero ID - [facility] 09:26:07 Problem Notes None recorded. Procedures Surgical History Date Name Laterality Status Provider Name and Address Organization Details Recorded Time 04/30/20 23 section completed Lainey Shaikh MA ID - [facility] 12/21/2023 14:28:13 cholecystectomy completed Lainey Shaikh MA ID - [facility] 12/21/2023 14:28:26 Imaging Results Imaging Date Name Status LastModified by Organiz ation Details LastModified Time 08/22/2019 CT, abdomen + pelvis, w/o contrast completed [facility]Lab [address] [place], [address], 08/25/2019 15:10:28 Procedure Notes None recorded. Medical Equipment None Reported. Allergies Allergen ID Allergen Name Allergen Category Reaction Reaction Severity Criticality Documentation Date Start Date Code Code System Note Provider Name and Address Organization Details Recorded Time 444720 codeine medicatio n Not available Not available Not available 12/21/2023 2670 RxNorm MINA Mercado ID - [facility] 4 14:22:19 [id number] Iodinated contrast media (substanc e) medicatio n Not available Not available Not available 12/21/2023 73805 2004 SNOMED MINA Mercado ID - [facility] 4 14:22:30 Medications Name Sig Start Date Stop Date Status Note LastModified by Organization Details LastModified Time carisoprodo l 350 mg tablet 12/20 completed Not Available Not Available Not Available cyclobenzap rine 10 mg tablet 12/20 completed Not Available Not Available Not Available fluconazole 100 mg tablet 12/20 completed Not Available Not Available Not Available prednisone 10 mg tablet TAKE 3 TABLETS BY MOUTH DAILY FOR 5 DAYS 12/20 completed Not Available Not Available Not Available ketoconazol e 2 % shampoo 12/20 completed Not Available Not Available Not Available polyethylen e glycol 3350 17 gram oral powder packet 12/20 completed Not Available Not Available Not Available azithromyci n 250 mg tablet 12/20 completed Not Available Not Available Not Available ibuprofen 800 mg tablet 12/20 completed Not Available Not Available Not Available fluconazole 150 mg tablet TAKE 1 (ONE) TABLET BY MOUTH EVERY 3 DAYS FOR 2 DOSES 12/20 completed Not Available Not Available Not Available hydrocodone 5 mg-acetamin ophen 325 mg tablet 12/20 completed Not Available Not Available Not Available tretinoin 0.025 % topical cream 12/20 completed Not Available Not Available Not Available meloxicam 15 mg tablet 12/20 completed Not Available Not Available Not Available phenazopyri dine 200 mg tablet 12/20 completed Not Available Not Available Not Available ondansetron HCl 4 mg tablet 12/20 completed Not Available Not Available Not Available acetaminoph en 300 mg-codeine 30 mg tablet 12/20 completed Not Available Not Available Not Available valacyclovi r 500 mg tablet TAKE 1 (ONE) TABLET BY MOUTH 2 TIMES DAILY active Not Available Not Available No t Available ciprofloxac in 500 mg tablet TAKE 1 TABLET BY MOUTH TWICE A DAY FOR 10 DAYS 12/20 completed Not Available Not Available Not Available clindamycin 1 %-benzoyl peroxide 5 % topical gel APPLY TO FACE DAILY. 30 DAYS SUPPLY. 12/20 completed Not Available Not Available Not Available sulfamethox azole 800 mg-trimetho prim 160 mg tablet 12/20 completed Not Available Not Available Not Available omeprazole 40 mg capsule,del ayed release Take 1 capsule every day by oral route. active Not Available Not Available No t Available tramadol 50 mg tablet 12/20 completed Not Available Not Available Not Available ondansetron 8 mg disintegrat ing tablet 12/20 completed Not Available Not Available Not Available ketorolac 10 mg tablet 12/20 completed Not Available Not Available Not Available meloxicam 7.5 mg tablet 12/20 completed Not Available Not Available Not Available Microgestin FE 10/02 (28) 1 mg-20 mcg (21)/75 mg (7) tablet 12/20 completed Not Available Not Available Not Available amoxicillin 875 mg tablet TAKE 1 TABLET BY MOUTH TWICE A DAY FOR 10 DAYS 12/20 completed Not Available Not Available Not Available citalopram 20 mg tablet 12/20 completed Not Available Not Available Not Available tamsulosin 0.4 mg capsule 12/20 completed Not Available Not Available Not Available dicyclomine 20 mg tablet 12/20 completed Not Available Not Available Not Available benzonatate 100 mg capsule TAKE 1 CAPSULE BY MOUTH 3 TIMES DAILY NEEDED FOR COUGH FOR UP TO 10 DAYS. 12/20 completed Not Available Not Available Not Available dexamethaso ne 2 mg tablet 12/20 completed Not Available Not Available Not Available paroxetine 20 mg tablet 12/20 completed Not Available Not Available Not Available triamcinolo ne acetonide 0.1 % topical ointment 12/20 completed Not Available Not Available Not Available buspirone 10 mg tablet 12/20 completed Not Available Not Available Not Available minocycline 50 mg capsule 12/20 completed Not Available Not Available Not Available docusate sodium 100 mg capsule 12/20 completed Not Available Not Available Not Available omeprazole 20 mg capsule,del ayed release 12/20 completed Not Available Not Available Not Available ergocalcife rol (vitamin D2) 1,250 mcg (50,000 unit) capsule 12/20 completed Not Available Not Available Not Available ibuprofen 600 mg tablet 12/20 completed Not Available Not Available Not Available labetalol 300 mg tablet TAKE 2 (TWO) TABLETS BY MOUTH EVERY 12 HOURS 12/20 completed Not Available Not Available Not Available methylpredn isolone 4 mg tablets in a dose pack 12/20 completed Not Available Not Available Not Available albuterol sulfate HFA 90 mcg/actuati on aerosol inhaler INHALE 2 PUFFS BY MOUTH EVERY 4-6 HOURS NEEDED FOR 5 DAYS active Not Available Not Available No t Available cefdinir 300 mg capsule TAKE 2 CAPSULES BY MOUTH DAILY FOR 7 DAYS. 12/20 completed Not Available Not Available Not Available fluticasone propionate 50 mcg/actuati on nasal spray,suspe nsion SPRAY 2 SPRAYS INTO EACH NOSTRIL DAILY -AFTER 1 WEEK MAY USE 1-2 SPRAY INTO EACH NOSTRIL DAILY 12/20 completed Not Available Not Available Not Available metronidazo le 0.75 % topical gel 12/20 completed Not Available Not Available Not Available naproxen 500 mg tablet 12/20 completed Not Available Not Available Not Available amoxicillin 875 mg-potassiu m clavulanate 125 mg tablet 12/20 completed Not Available Not Available Not Available oxycodone 5 mg tablet TAKE 1 TABLET BY MOUTH EVERY 4 HOURS NEEDED 12/20 completed Not Available Not Available Not Available cyclobenzap rine 5 mg tablet 12/20 completed Not Available Not Available Not Available nitrofurant oin monohydrate /macrocryst als 100 mg capsule 12/20 completed Not Available Not Available Not Available duloxetine 60 mg capsule,del ayed release 12/20 completed Not Available Not Available Not Available Rectiv 0.4 % (w/w) ointment 12/20 completed Not Available Not Available Not Available Linzess 145 mcg capsule 12/20 completed Not Available Not Available Not Available Minastrin 24 Fe 1 Tablet by mouth daily 12/20 completed Not Available Not Available Not Available Virtussin AC 10 mg-100 mg/5 mL oral liquid 12/20 completed Not Available Not Available Not Available Junel Fe 24 1 mg-20 mcg (24)/75 mg (4) tablet one po qday 12/20 completed Not Available Not Available Not Available Vitals Date Recorded Body height Body mass index (BMI) Body weight Systolic blood pressure Diastolic blood pressure Provider Name and Address Organization Details Last Updated DateTime 12/21/2017 163.83 cm 24.2 kg/m2 29969.43 g 124 mm[Hg] 60 mm[Hg] Katherine so MA [place] - [facility] 8 15:40:11 Date Recorded Body height Body mass index (BMI) Percentile per age and sex Body mass index (BMI) Body weight Systolic blood pressure Diastolic blood pressure Provider Name and Address Organization Details Last Updated DateTime 9 163.83 cm 85 % 26.4 kg/m2 39405.4 1 g 112 mm[Hg] 66 mm[Hg] Katherine so MA [facility] 9 17:11:37 Date Recorded Body weight Body height Body mass index (BMI) Systolic blood pressure Diastolic blood pressure Provider Name and Address Organization Details Last Updated DateTime 03/12/2015 95639.18 082 g 163.195 cm 31.7 kg/m2 126 mm[Hg] 84 mm[Hg] Katherine so MA [facility] 5 14:33:17 Date Recorded Body height Body mass index (BMI) Percentile per age and sex Body mass index (BMI) Body weight Systolic blood pressure Diastolic blood pressure Provider Name and Address Organization Details Last Updated DateTime 9 163.83 cm 92 % 29.5 kg/m2 06961.5 1 g 112 mm[Hg] 76 mm[Hg] Katherine so MA [facility] 9 14:41:32 Date Recorded Body height Body mass index (BMI) Body weight Body temperature Respiratory rate Heart rate Systolic blood pressure Diastolic blood pressure Provider Name and Address Organization Details Last Updated DateTime 4 163.83 cm 30.8 kg/m2 40622.5 3 g 98 [degF] 16 /min 85 /min 116 mm[Hg] 80 mm[Hg] Lainey Shaikh MA [facility] 4 14:29:32 Social History Question Answer Notes LastModified by Organizat ion Details LastModified Time Tobacco Smoking Status Never Smoker Katherine Arboleda MA null, [facility] 08/20/2014 09:26:07 Are You Blind Or Do You Have Difficulty Seeing? No Glasses Information not available 12/21/2023 What Is Your Level Of Caffeine Consumption? Moderate Information not available 12/21/2023 In The 14 Days Before Symptom Onset, Have You Had Close Contact With A Laboratory-confir med COVID-19 While That Case Was Ill? No Information not available 12/21/2023 In The 14 Days Before Symptom Onset, Have You Had Close Contact With A Person Who Is Under Investigation For COVID-19 While That Person Was Ill? No Information not available 12/21/2023 Have You Been To An Area Known To Be High Risk For COVID-19? No Information not available 12/21/2023 Are You Deaf Or Do You Have Serious Difficulty Hearing? No Information not available 12/21/2023 What Type Of Diet Are You Following? REGULAR Dairy Free Information not available 12/21/2023 What Is The Highest Grade Or Level Of School You Have Completed Or The Highest Degree You Have Received? OB10886-1 Information not available 12/21/2023 Who Is Your Employer? [employer] Information not available 12/21/2023 Live Alone Or With Others? With Others Information not available 08/20/2014 What Was The Date Of Your Most Recent Tobacco Screening? 12/21/2023 Information not available 12/21/2023 How Many Children Do You Have? 0 Information not available 08/20/2014 Do You Have Any Pets? No Information not available 12/21/2023 What Is Your Relationship Status? Single Information not available 08/20/2014 Are You Sexually Active? No Information not available 08/20/2014 Do You Use Sunscreen Routinely? Yes Information not available 12/21/2023 Sex: Unknown Functional Status Question Answer Note LastModified by Organization Details LastModified Time Do you use any illicit or recreational drugs? No Information not available 12/21/2023 What is your level of alcohol consumption? None Information not available 12/21/2023 Are you currently employed? Yes Information not available 12/21/2023 What is your exercise level? Occasional Information not available 12/21/2023 What type of noise exposure are you exposed to? noExposureToExcessiveNoise Infor mation not available 12/21/2023 Mental Status Question Answer Note LastModified by Organization D etails LastModified Time Do you feel stressed (tense, restless, nervous, or anxious, or unable to sleep at night)? [id number] Information not available 12/21/2023 Family History Nothing Reported. Medical History Condition Response Bladder or Kidney Problems Y Gynecological History Statement/Question Response Menses Monthly Y STIs/STDs N Current Control Method BCPs LMP Definite Sexually Active? N Obstetrics History GPAL:G 0 P 0 0 0 0 Type Value Living 0 Total 0 Past Encounters Encounter ID Performer Location Encounter Start Date Encounter Closed Date Diagnosis/Indication Diagnosis SNOMED-CT Code Diagnosis ICD10 Code Diagnosis Note [id number] MD Barbara Guerra ([place] [address]) [address] [facility] [address] [place] [address] [address] 03/12/2015 14:23:42 03/12/2015 15:28:35 Uses oral contraception 8834613 [id number] MD Barbara Guerra ([place] [address]) [address] [facility] [address] [place] [address] [address] 12/21/2017 15:20:38 12/22/2017 15:49:36 Body mass index 20-24 - normal 076170024 Z68.24 Irregular periods 025514 07 N92.6 High risk sexual behavior 165302061 Z72.51 [id number] MD Volodymyr Guerran 14 OB [address] [facility] [address] [facility] [place] [address] 11/28/2018 16:26:52 11/29/2018 09:37:29 Right lower quadrant pain 304630178 R10.31 [id number] MD Barbara Guerra 14 OB [address] [facility] [address] [place], [place] [address], [place] [address] 08/25/2019 14:20:15 08/29/2019 16:26:50 Low back pain 108120772 M54.5 [id number] Hussein De Anda MD [facility] (Adult Med) [address] [place] [address] 12/21/2023 14:05:28 12/30/2023 20:33:59 Gastroesophageal reflux disease 647879694 K21.9 follow back in a month Health Concerns Section Related Observation LastModified by Organization Detai ls LastModified Time None Recorded Concern Status LastModified by Organization Details LastModified Time None Recorded Advance Directives Directive None Recorded Payers Encounter Date Sequence Insurance Name Policy Number Policy Curtis Covered Member ID Curtis Member ID Guarantor Name 03/12/2015 1 [place] [facility] Aerial [place] [id number] Aerial N Basden 12/21/2017 1 [facility] (MEDICAID HMO) Aerial Bas[place] [id number] Aerial N [place] 11/28/2018 1 [employer] [id number] Aerial N [place] [id number] Aerial N [place] 08/25/2019 1 [employer] [id number] Aerial N [place] [id number] Aerial N [place] 12/21/2023 2 [place] [facility] OF PUBLIC AID Aerial N Basden [id number] Aerial N [place] 12/21/2023 1 [employer] [id number] Aerial N Basden [id number] Aerial N [place] Notes Date Note Type Note Provider Name and Address Organization Details Recorded Time 12/21/2023 text/html Pt complaining o f a sore throat for the last 6 months. It comes and goes every few weeks. She does not complain of sinus drainage Hussein De Anda MD Attn: Accounting,[address] [facility], [place], [address], [facility] - [facility] 12/21/2023 14:39:11 OBGyn Episode No OBEpisode recorded.
[2025-02-04 10:32] VITALS: BP 117/71; PULSE 87; RESP 16; TEMP 36.6; O2SAT 100
[2025-02-04] MEDS: DACRIOSE EYE IRRIGATION 118 ML BOTTLE AFFCTD EYE (10:48)
[2025-02-04] MEDS: TETRACAINE HCL 0.5% OPHTH SOLN 4 ML BTL AFFCTD EYE (10:48)
[2025-02-04] MEDS: FLUORESCEIN SOD 1 MG/STRIP AFFCTD EYE (10:48)
--- NOTE | 2025-02-04 10:48 | ED.EYEPROB ---
HPI - Eye Problem General Chief complaint: Eye Problems Stated complaint: Right Eye Problem Source: patient and RN notes reviewed Mode of arrival: ambulatory Limitations: no limitations History of Present Illness HPI Narrative: 24-year-old female presents [facility] complaining of right eye pain over the last 4 days. Patient denies scratching her injuring her right eye. Patient reports her right eye is very watery and red. Patient reports having some sensitivity to light to her right eye. Patient denies any pressure in her eyes, nausea, vomiting, or vision changes. Patient does have a history of corneal abrasions. Patient did a tele visit about her eye and was prescribed neomycin drops and started yesterday. Related Data Home Medications ?Medication ?Instructions ?Recorded ?Confirmed ?Last Taken ?Type dextroamphetamine-amphetamine 10 02/04/25 Unknown History mg tablet polymyxin B sulfate 10,000 02/04/25 Unknown History unit-trimethoprim 1 mg/mL eye drops valacyclovir 02/04/25 Unknown History Allergies Allergy/AdvReac Type Severity Reaction Status Date / Time codeine Allergy Intermediate Itching Verified 02/04/25 10:30 Review of Systems Review of Systems: CONSTITUTIONAL: Denies fever, chills, or sweats. EYES: Denies visual changes, redness, or discharge. Positive for redness, photophobia, and watery eye. ENT: Denies rhinorrhea, congestion, sore throat, or otalgia. CARDIOVASCULAR: Denies chest pain, palpitations, or edema. RESPIRATORY: Denies cough or dyspnea. GASTROINTESTINAL: Denies abdominal pain, nausea, vomiting, or diarrhea. GENITOURINARY: Denies dysuria or hematuria. SKIN: Denies rash or itching. MUSCULOSKELETAL: Denies back pain, joint pain, or myalgia. NEUROLOGIC: Denies headache, numbness, or weakness. PSYCHIATRIC: Denies anxiety or depression. All other systems reviewed are negative, except as documented in HPI. PMFSH Comments At the time of my signature, I reviewed and agree with the nursing past medical, surgical, social, and family history. There is no relevant family history pertinent to the patient complaint. Exam Narrative: GENERAL: This is a well-nourished, well-developed adult, in no apparent distress. They are non ill-appearing, nontoxic appearing. HEAD: normocephalic, atraumatic. EYES: Sclera clear/white. Right Conjunctiva injected. Right eye is watery. Left conjunctiva normal. No exudate or discharge. Vision is grossly intact. Extraocular movements intact. Pupils PERRLA. Wood's lamp exam of right eye showed with fluorescent stain shows corneal abrasion in the middle of the cornea. Abrasion is vertical and linear. His measuring approximately less than 0.5 cm. No vitreous humor present. Eversion of right upper and lower eyelids show no evidence of retained foreign body. EARS: External ears normal, NOSE: External nose normal THROAT: Mucous membranes moist NECK: Neck supple CARDIOVASCULAR: Regular rate and rhythm RESPIRATORY: Respiratory rate normal, respiratory effort nonlabored, no respiratory distress SKIN: warm, Dry, intact with no suspicious lesions or rash, good texture and turgor. NEURO: awake, alert, and oriented to person, place and time. There were no obvious focal neurologic abnormalities. EXTREMITIES: No joint tenderness, effusion, or edema noted. Course Course Emergency Course: Portions of this record may have been created with voice recognition software Level of Care: Express Care Visit Vital Signs Vital signs: Vital Signs Temperature 98 F 02/04/25 10:32 Pulse Rate 87 02/04/25 10:32 Respiratory Rate 16 02/04/25 10:32 Blood Pressure 117/71 02/04/25 10:32 Pulse Oximetry 100 02/04/25 10:32 Oxygen Delivery Room Air 02/04/25 10:32 Temperature 98 F 02/04/25 10:32 Pulse Rate 87 02/04/25 10:32 Respiratory Rate 16 02/04/25 10:32 Blood Pressure 117/71 02/04/25 10:32 Pulse Oximetry 100 02/04/25 10:32 Oxygen Delivery Room Air 02/04/25 10:32 Reviewed MDM - Eye Problem MDM Narrative Medical decision making narrative: Patient has evidence of corneal abrasion during wood lamp exam. No apparent trauma caused patient's corneal abrasion. Some might be a recurring corneal abrasion. Will switch her neomycin prescription to erythromycin ointment for infection prevention and hydration of the eye. Will prescribe ketorolac as needed for pain. Patient was unable to tolerate poornima pen exam. Patient said she has had extensive testing before for glaucoma was told she does not have glaucoma. Patient denies any pressure her eye, severe eye pain, halos, nausea or vomiting. Low suspicion for glaucoma. Discussed physical exam findings. Advised supportive measures and signs/symptoms to go to the ER. Pt is appropriate for outpt treatment and f/u. Differential Diagnosis Differential diagnosis: Likely corneal abrasion, conjunctivitis and glaucoma Critical Care Time Critical Care Time Critical Care Time: No Discharge Plan Discharge Clinical Impression: Corneal abrasion Qualifiers: Encounter type: initial encounter Laterality: right Qualified Code(s): S05.01XA - Injury of conjunctiva and corneal abrasion without foreign body, right eye, initial encounter Patient Disposition: Home Condition: Stable Instructions: Antibiotic Form, Corneal Abrasion (DC) Additional Instructions: Stop taking the neomycin drops in start using the erythromycin ointment as directed for infection prevention. You may use ketorolac as needed for pain. Do not take Motrin or any other NSAIDs while taking ketorolac. You may also use Tylenol as needed for pain. Smaller corneal abrasions usually resolve within 1-2 days. Larger ones may take longer to heal. Please follow-up with an health safety and environment manager for further evaluation and management of your corneal abrasion. If you develop any vision changes, worsening redness, discharge, fevers, pressure in your eye, halos around your eye, nausea or vomiting please go to the ER immediately. Patient Language: Czech Prescriptions: New erythromycin 5 mg/gram (0.5 %) ointment 0.5 inch RIGHT EYE QID 5 Days Qty: 50 0RF ketorolac 10 mg tablet 10 mg PO Q6H PRN (Reason: eye pain) Qty: 20 0RF Rx Instructions: maximum total duration of 5 days from all oral, intranasal, or parenteral formulations No Action dextroamphetamine-amphetamine 10 mg tablet polymyxin B sulf-trimethoprim 10,000 unit- 1 mg/mL drops valacyclovir Follow-up/Referrals: PHYSICIAN NOT ON STAFF,NONSTAFF [Primary Care Provider] - Time of Disposition: 11:28
== END 2025-02-04 11:33 | disposition home or self-care (01) ==
DX: S05.01XA Injury of conjunctiva and corneal abrasion without foreign body, right eye, initial encounter (principal); X58.XXXA Exposure to other specified factors, initial encounter
CPT/HCPCS: 99203; A9270; G0463